=== PATIENT | female | born 1955 | race Caucasian/White ===

== ENCOUNTER → 2020-05-08 07:41 | Outpatient (CLI) | payer OTHER, SELFPAY ==
--- NOTE | ~2020-05-08 | MM_ITS ---
EXAMINATION: MM screening phil BI w harris HISTORY: Screening TECHNIQUE: Craniocaudal and mediolateral oblique 3-D tomosynthesis images were obtained and synthetic 2-D images were generated. CAD analysis was submitted and interpreted. COMPARISON: 01/13/2012 BREAST PARENCHYMAL COMPOSITION: Breast composed of scattered areas of fibroglandular density. FINDINGS: There are developing asymmetries in the subareolar locations of both breasts. There are no suspicious calcifications or architectural distortion. IMPRESSION: 1. Developing bilateral breast asymmetries. 2. Additional mammographic views and possible breast ultrasound are recommended. BI-RADS Category 0: Incomplete: Needs additional imaging evaluation. Reviewed, dictated and finalized at location A. RNET MARKETER IMPRESSION: 1. Developing bilateral breast asymmetries. 2. Additional mammographic views and possible breast ultrasound are recommended . BI-RADS Category 0: Incomplete: Needs additional imaging evaluation.
== END ==
PROVIDERS: PCP Family Medicine; Visit Provider Family Medicine
DX: Z12.31 Encounter for screening mammogram for malignant neoplasm of breast (principal); R92.8 Other abnormal and inconclusive findings on diagnostic imaging of breast
CPT/HCPCS: 77063; 77067

== ENCOUNTER 2020-05-13 10:34 | Outpatient (NON) | payer OTHER, SELFPAY ==
[2020-05-13 22:46] LABS: SARS-CoV-2 RNA PCR Positive
== END 2020-05-13 10:35 ==
PROVIDERS: PCP Family Medicine; Visit Provider Physician Assistant
DX: U07.1 COVID-19 (principal)
CPT/HCPCS: C9803; U0003; U0005

== ENCOUNTER 2020-05-17 20:08 | Emergency (ER) | payer OTHER, SELFPAY ==
--- NOTE | ~2020-05-17 | XR_ITS ---
EXAMINATION: XR chest 1V portable INDICATION: COVID 19 positive, weakness TECHNIQUE: Portable AP chest at 2035 hours COMPARISON: None available FINDINGS: Patchy bilateral opacities are present throughout all lung zones. There is no pleural effus ion or pneumothorax. The cardiomediastinal silhouette is normal. The visualized osseous structures ar e unremarkable. IMPRESSION: 1. Diffuse lung disease consistent with pneumonia and/or pulmonary edema. Reviewed, dictated and finalized at location A. TS MEDIA
[2020-05-17 20:05] VITALS: BP 136/88; PULSE 86; RESP 18; TEMP 37.2; O2SAT 98
--- NOTE | 2020-05-17 20:16 | ECG_ITS ---
Measurements Intervals [place] Rate: 105 P: 57 IN: 184 QRS: 8 QRSD: 91 T: 33 QT: 297 QTc: 394 Interpretive Statements SINUS TACHYCARDIA INCOMPLETE RIGHT BUNDLE BRANCH BLOCK DELAYED PRECORDIAL R/S TRANSITION BORDERLINE T WAVE ABNORMALITY- ANT/INF LEADS BORDERLINE ECG Electronically Signed On 05-18-2020 7:14:26 FARMWORKER by Dick Jaquez D.O.
--- NOTE | 2020-05-17 20:36 | ED.GENADULT ---
HPI - General Adult General Chief complaint: Weakness Stated complaint: weakness/covid+ Time Seen by Provider: 05/17/20 20:16 Source: patient History of Present Illness HPI narrative: Patient is a 64 y/o female complaining of moderate generalized weakness for several days. There is no alleviating or exacerbating factor. She also has some running nose and congestion. She denies fever, cough or SOB. She states that she tested positive for COVID 4 days ago. Related Data Allergies Allergy/AdvReac Type Severity Reaction Status Date / Time prednisone Allergy Mild vision Verified 05/13/20 09:42 changes Review of Systems Constitutional: Constitutional: Denies chills, Denies fever(s), Denies headache(s) and Reports weakness Eyes: Eyes: Denies blurry vision ENT: Denies headache(s) and Denies neck pain Cardiovascular: Cardiovascular: Denies chest pain and Denies dyspnea Respiratory: Respiratory: Denies cough and Denies dyspnea Gastrointestinal: Gastrointestinal: Denies abdominal pain, Denies diarrhea, Denies nausea and Denies vomiting Genitourinary: Genitourinary: Denies hematuria and Denies dysuria Musculoskeletal: Musculoskeletal: Denies back pain and Denies neck pain Neurologic: Denies headache(s) and Reports weakness PMFSH Past Medical History Medical History Benign breast cyst in female Essential hypertension Mixed hyperlipidemia Prediabetes Surgical History Surgical History H/O wrist surgery History of arthroscopic knee surgery History of tonsillectomy Family History Family History Mother Diabetes mellitus Heart disease Father Alzheimer disease Hypotension Other Family history of Alzheimer's disease Family history of coronary artery disease Hypertension Social History Social History Smoking status: Never smoker Second hand tobacco smoke exposure: No Alcohol intake: never Substance use: never Substance use type: does not use Gender identity (if verbalized by the patient): Female Exam Const: General: no acute distress and well developed Orientation/consciousness: oriented to person, oriented to place, oriented to time and patient oriented x3 HENMT: Head: normocephalic Ears: external ears normal General nose exam: Normal external nose present Eyes: General: appearance normal, both eyes and all related structures Conjunctivae: conjunctivae normal Neck: Neck: normal visual inspection and full ROM Chest: Chest palpation & inspection: normal inspection of the chest and no tenderness Resp: Effort & Inspection: normal respiratory effort Auscultation: clear to auscultation bilaterally Cardio: Rate: regular rate Rhythm: regular rhythm GI: GI Palp: No abdominal tenderness and Yes Soft to palpation Skin: General skin exam: normal color and turgor normal Neuro: General: oriented to person, oriented to place, oriented to time and patient oriented x3 Cognition (Neuro): normal cognition Extrem: General: normal to inspection, full ROM and no pedal edema Psych: Appearance: grossly normal Mental Status: mental status grossly normal Affect: normal affect Course Vital Signs Vital signs: Vital Signs Temperature 37.2 C 05/17/20 20:05 Pulse Rate 86 05/17/20 20:05 Respiratory Rate 18 05/17/20 20:05 Blood Pressure 136/88 05/17/20 20:05 Pulse Oximetry 98 05/17/20 20:05 Temperature 36.3 C L 05/17/20 22:29 Pulse Rate 81 05/17/20 22:29 Respiratory Rate 16 05/17/20 22:29 Blood Pressure 131/82 05/17/20 22:29 Pulse Oximetry 94 05/17/20 22:29 Medical Decision Making Vital Signs Vital Signs: Vital Signs Temperature 37.2 C 05/17/20 20:05 Pulse Rate 86 05/17/20 20:05 Respiratory Rate 18 05/17/20 20:05 Blood Pressure 136/88
[2020-05-17] MEDS: SODIUM CHLORIDE 0.9% IV 1,000 ML 999 ML IV CONT (20:44)
[2020-05-17 20:51] LABS: Basophils Percent Auto 0.2 % (0.2-1.2); Hematocrit 40.6 % (37.0-47.0); Hemoglobin 13.8 g/dL (12.0-15.0); Immature Granulocyte Absolute 0.04 K/mm3 (0.00-0.031); Immature Granulocyte Percent A 0.3 % (0-0.5); Lymphocytes Absolute Auto 1.28 K/mm3 (0.9-3.2); Lymphocytes Percent Auto 10.1 % (18.3-44.2); Mean Corpuscular Hemoglobin 28.3 pg (26-34); Mean Corpuscular Volume 83.2 fl (80-100); Mean Platelet Volume 8.9 fl (7.4-10.4); Monocytes Absolute Auto 0.6 K/mm3 (0.1-0.6); Monocytes Percent Auto 4.7 % (2.6-8.5); Neutrophils Absolute Auto 10.7 K/mm3 (1.3-6.7); Neutrophils Percent Auto 84.7 % (45.5-73.1); Platelet Count Result 239 k/mm3 (150-375); Red Blood Count 4.88 M/mm3 (4.2-5.4); Red Cell Distribution Width 14.2 % (11.5-14.5); White Blood Count 12.6 K/mm3 (4.5-10.0)
[2020-05-17 21:02] LABS: Alanine Aminotransferase 28 U/L (4-35); Albumin Level 4.3 g/dL (3.5-5.1); Alkaline Phosphatase 79 U/L (38-126); Anion Gap 8 mmol/L (8-16); Aspartate Amino Transferase 42 U/L (14-36); Bilirubin,Total 0.4 mg/dL (0.2-1.3); Blood Urea Nitrogen 16 mg/dL (7-17); Calcium 8.8 mg/dL (8.4-10.2); Carbon Dioxide 31 mmol/L (22-30); Chloride 92 mmol/L (98-107); Estimated CRCL calculation 79 ml/min; Estimated Glomerular Filt Rate > 60; Glucose 161 mg/dL (65-105); Potassium 3.1 mmol/L (3.4-5.0); Sodium 131 mmol/L (137-145)
[2020-05-17] MEDS: POTASSIUM CHLORIDE 20 MEQ TABLET 40 MEQ PO (21:32)
--- NOTE | 2020-05-17 22:15 | PC.NURSE ---
Patient's brother, Mariano, contacted for ride home. Per Mariano, he is contacting patient's friend for ride home.
[2020-05-17 22:29] VITALS: BP 131/82; PULSE 81; RESP 16; TEMP 36.3; O2SAT 94
== END 2020-05-17 22:31 | disposition home or self-care (01) ==
PROVIDERS: Emergency Provider Emergency Medicine; PCP Family Medicine
DX: U07.1 COVID-19 (principal); R53.1 Weakness; E87.1 Hypo-osmolality and hyponatremia; I10 Essential (primary) hypertension; E78.2 Mixed hyperlipidemia; R73.03 Prediabetes; R00.0 Tachycardia, unspecified; I45.10 Unspecified right bundle-branch block
CPT/HCPCS: 36415; 71045; 80053; 85025; 93005; 96360; 99283; A9270; J7030

== ENCOUNTER → 2020-07-16 09:29 | Outpatient (CLI) | payer OTHER, SELFPAY ==
--- NOTE | ~2020-07-16 | MMUS_ITS ---
EXAMINATION: MM diagnostic phil BI w harris, US breast BI complete HISTORY: Developing bilateral breast asymmetries TECHNIQUE: Additional 3-D tomosynthesis images of the breasts were performed and synthetic 2-D images were generated. CAD analysis was submitted and interpreted. High resolution bilateral breast ultraso und was performed. COMPARISON: Comparison to multiple prior studies sequentially, with oldest reviewed study dated 01/12. BREAST PARENCHYMAL COMPOSITION: Breast composed of scattered areas of fibroglandular density. FINDINGS: MAMMOGRAPHIC FINDINGS: There is persistent focal asymmetry in the upper central aspect of the right breast. No discrete mass is identified in the left breast. No suspicious architectural distortion or abnormal clustered calci fications ULTRASOUND: Bilateral breast ultrasound: Multiple simple and complicated cysts are present scattered throughout b oth breasts accounting for breast asymmetries. There is a cluster of microcysts in the left breast at 1:00 near the areola measuring up to 6 mm in aggregate. No suspicious masses to suggest malignancy. IMPRESSION: 1. No evidence for malignancy in either breast. Benign findings. 2. Routine yearly screening mammogram and regular clinical breast examination are recommended. BI-RADS Category 2: Benign finding(s). Reviewed, dictated and finalized at location A. IMPRESSION: 1. No evidence for malignancy in either breast. Benign findings. 2. Routine yearly screening mammogram and regular clinical breast examination a re recommended. BI-RADS Category 2: Benign finding(s).
== END ==
PROVIDERS: PCP Family Medicine; Visit Provider Family Medicine
DX: R92.8 Other abnormal and inconclusive findings on diagnostic imaging of breast (principal)
CPT/HCPCS: 76641; 77062; 77066; G0279

== ENCOUNTER → 2020-10-12 11:07 | Outpatient (CLI) | payer OTHER, SELFPAY ==
--- NOTE | ~2020-10-12 | XR_ITS ---
XR knee RT min 4V DATE: 10/12/2020 12:03 INDICATION: Right knee pain TECHNIQUE: 4 views COMPARISON: 02/16/2015 right knee FINDINGS: Mild periarticular spurring of the patellofemoral and medial compartments. Mild suprapatellar knee joint effusion is suggested. There is superior pole patellar enthesopathy. No fracture or dislocation, periosteal reaction or bone destruction, radiopaque intra-articular loose body or chondrocalcinosis. 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
== END ==
PROVIDERS: PCP Physician Assistant; Visit Provider Physician Assistant
DX: M25.569 Pain in unspecified knee (principal); M17.11 Unilateral primary osteoarthritis, right knee; M25.461 Effusion, right knee
CPT/HCPCS: 73564

== ENCOUNTER → 2023-06-02 11:16 | Outpatient (CLI) | payer MEDICARE, OTHER, SELFPAY ==
--- NOTE | ~2023-06-02 | MM_ITS ---
EXAMINATION: MM screening [facility] BI w harris HISTORY: Screening mammogram TECHNIQUE: Craniocaudal and mediolateral oblique 3-D tomosynthesis images were obtained and synthetic 2-D images were generated. CAD analysis was submitted and interpreted. COMPARISON: 07/16/2020, 05/08/2020, 04/01/2016 BREAST PARENCHYMAL COMPOSITION: There are scattered areas of fibroglandular density. FINDINGS: No suspicious mass, calcification, or architectural distortion are identified in either rhona ast to suggest malignancy. There has been no suspicious interval change. IMPRESSION: 1. No mammographic evidence of malignancy. 2. Recommend routine screening mammography in one year. BI-RADS Category 1: Negative Reviewed, dictated and finalized at location A. HOUSE CLERK
== END ==
PROVIDERS: PCP Physician Assistant; Visit Provider Physician Assistant
DX: Z12.31 Encounter for screening mammogram for malignant neoplasm of breast (principal)
CPT/HCPCS: 77063; 77067

== ENCOUNTER 2023-12-22 15:14 | Emergency (ER) | payer MEDICARE, OTHER, SELFPAY ==
[2023-12-22] VITALS (19 sets, daily range): BP systolic 152–230; BP diastolic 89–132; PULSE 99–121; RESP 13–24; TEMP 36.4; O2SAT 95–99
--- NOTE | 2023-12-22 15:30 | ED.ALLEREA ---
HPI - Allergic Reaction General Chief complaint: Allergic Reaction Stated complaint: allergic reaction Time Seen by Provider: 12/22/23 15:21 Source: patient Mode of arrival: EMS Limitations: no limitations History of Present Illness HPI narrative: Patient is a 68 y/o female who presents to the ED via EMS with report of allergic reaction. patient reports she was mowing grass just prior to arrival when she was stung by several ground bees in her arms and legs. She began having pain, rash, hives, itching, trouble breathing. Seen at . Was given epinephrine, toradol, solu-medrol, benadryl, and pepcid at the . Sent here for further evaluation. Patient states she is no longer having any trouble breathing. No difficulty swallowing. Denies swelling of lips/tongue /throat. Reports mild nausea. States she just feels very anxious and jittery. Related Data Allergies Allergy/AdvReac Type Severity Reaction Status Date / Time prednisone Allergy Mild vision Verified 10/30/23 10:37 changes bee venom protein (honey bee) Allergy Hives Verified 12/22/23 15:29 acetaminophen [From Vicodin] AdvReac Unknown doesn't Verified 10/30/23 10:37 work on her codeine AdvReac Unknown doesn't Verified 10/30/23 10:37 work on her hydrocodone [From Vicodin] AdvReac Unknown doesn't Verified 10/30/23 10:37 work on her morphine AdvReac Unknown doesn't Verified 10/30/23 10:37 work on her Review of Systems Review of Systems: All systems reviewed & are unremarkable except as noted in HPI. All systems reviewed & are unremarkable except as noted in HPI and below PMFSH Past Medical History Medical History Asthma Benign breast cyst in female Essential hypertension Mixed hyperlipidemia Prediabetes Seasonal allergies Surgical History Surgical History H/O wrist surgery (~1999) Lt History of arthroscopic knee surgery Rt and Lt -- 2004 & 2005 History of breast surgery (~1974) Lt History of tonsillectomy (~1973) & Adenoidectomy Family History Family History Mother Diabetes mellitus Heart disease Father Alzheimer disease Hypotension Other Family history of Alzheimer's disease Family history of coronary artery disease Hypertension Social History Social History Smoking status: Never smoker Second hand tobacco smoke exposure: No Alcohol intake: never Alcohol use details: rare Substance use: never Substance use type: does not use Lack of Transportation: No Lack of Food: Never True Current Housing: I Have Housing Concerned About Future Housing: Decline to Answer Difficulty Paying Gas/Electric Bills: Decline to Answer Difficulty Paying for Meds: Decline to Answer Currently Unemployed: Decline to Answer Difficulty w/ Childcare or Family Care: No Living arrangements: with family Occupation/Education: occupation Gender identity (if verbalized by the patient): Female Sexual Orientation (if Verbalized by the Patient): Straight or Heterosexual Spiritual care concerns: No Agree to blood products: Yes Exam Narrative: GENERAL: Anxious/uncomfortable appearing, obese with BMI of 39.4, in mild acute distress. HEAD: Normocephalic, atraumatic. ENT: no appreciable swelling of lips. Posterior pharynx is patent. No stridor distress. No urticaria to face. RESPIRATORY: Airway patent, respirations nonlabored. Clear to auscultation bilaterally, no rales, rhonchi, wheezing. No stridor or distress. CARDIOVASCULAR: Tachycardic with regular rhythm. MUSCULOSKELETAL: Moves all extremities. No gross deformities. SKIN: Warm, dry, normal color. Diffuse urticaria to trunk and back, neck. numerous sting zacarias with focal latoya
[2023-12-22] MEDS: SODIUM CHLORIDE 0.9% IV 1,000 ML 999 ML IV CONT (15:50)
[2023-12-22] MEDS: traMADol HCL (*CRX) 50 MG TABLET PO (20:56)
== END 2023-12-22 20:35 | disposition home or self-care (01) ==
PROVIDERS: Emergency Provider Physician Assistant; PCP Family Medicine
DX: T63.441A Toxic effect of venom of bees, accidental (unintentional), initial encounter (principal); T78.2XXA Anaphylactic shock, unspecified, initial encounter; I10 Essential (primary) hypertension; E78.2 Mixed hyperlipidemia; J45.909 Unspecified asthma, uncomplicated; R73.03 Prediabetes
CPT/HCPCS: 96360; 99283; A9270; J7030